=== PATIENT | female | born 1995 | race African-American/Black ===

== ENCOUNTER 2018-03-28 05:13 | Inpatient (IN) | payer MEDICAID, OTHER ==
[2018-03-28 05:51] VITALS: BMI 36.8
[2018-03-28] MEDS: Lactated Ringer's 1,000 ML IV SCH ×2 (06:00→11:27)
[2018-03-28] MEDS ORDERED: CEFAZOLIN/Water 2 GM/20 ML SYRINGE SLOW IVP SCH (06:15)
[2018-03-28] MEDS ORDERED: CEFAZOLIN 2 GM/50 ML-DEXTROSE 2 GM in Premix Bag 1 BAG IVPB SCH (06:15)
[2018-03-28] MEDS ORDERED: Bicitra 30 ML UDCUP PO SCH (06:15)
[2018-03-28] MEDS ORDERED: Acetaminophen 500 MG TAB PO PRN (06:43)
[2018-03-28] MEDS ORDERED: Promethazine HCl 25 MG/ML VIAL IM PRN ×2 (06:43→11:01)
[2018-03-28] MEDS ORDERED: Ondansetron PF 4 MG/2 ML Vial IVP PRN ×2 (06:43→11:01)
[2018-03-28 07:00] LABS: Hemoglobin 10.4 g/dL (12.0-16.0); Mean Corpuscular HGB CONC 32.5 g/dL (32.0-36.0); Mean Corpuscular Hemoglobin 28.1 pg (25.0-35.0); Mean Corpuscular Volume 86.5 fL (78.0-98.0); Mean Platelet Volume 8.1 fL (7.4-10.4); Platelet Count 255 thou/uL (130-400); RBC Distribution Width 13.7 % (11.5-14.5); Red Blood Cell (RBC) Count 3.71 mill/uL (4.00-5.20); White Blood Cell (WBC) Count 9.5 thou/uL (4.8-10.8)
--- NOTE | 2018-03-28 07:13 | PDOC.FPROB ---
FMR OB H&P: HPI - History of Present Illness Chief Complaint: Term IUP, repeat LTCS History of Present Illness: 22 yo @ 39.2 presents for scheduled repeat LTCS. Primary CS 2/2 AOL with intolerance of labor. Pt has h/o pos chlamydia s/p successful rx. Denies LOF, ctxs, vag bleeding. Primary Care Physician: Fernando FMR OB H&P: Current - Care : 2 Para: 1 Gestational age: 39.2 Due date: 04/02/2018 Dating Criteria: 1st tri US Course/Complications: Anemia of Positive chlamydia, successful rx - OB Labs Blood type: A RH: positive Antibody Screen: negative HIV: negative RPR: negative HepBsAg: negative Rubella: immune Quad screen: negative (in 2018) Urine drug screen: not done Gonorrhea: negative Chlamydia: positive (JESSICA negative. Successfully rx.) 1 hour gtt: 109 GBS: negative H&H: 10.4 Platelets: 255 - Anatomy Survey Anatomy survey: Female, no anomalies FMR OB H&P: History - Past Medical History PMH: None - OB History OB History: pLTCS - Surgical History Sx History: LTCS X1 - Social History Social History: Denies alcohol, tobacco, drugs - Family History Family History: Son with sickle cell trait FMR OB H&P: Medications - Current Home Medications: Medication Instructions Recorded Confirmed Type Ferrous Sulfate [Iron] 1 tablet PO DAILY 03/28/18 03/28/18 History Allergies/Adverse Reactions: Allergies Allergy/AdvReac Type Severity Reaction Status Date / Time No Known Allergies Allergy Unverified 03/28/18 05:44 FMR OB H&P: ROS - Review of Systems General: denies: fever/chills, fatigue Eyes: denies: vision changes, double vision, scotomas ENT: denies: nasal congestion Cardiovascular: denies: chest pain Respiratory: denies: shortness of breath Gastrointestinal: denies: abdominal pain, nausea, vomiting, diarrhea, constipation Genitourinary (Female): denies: vaginal pain, vaginal bleeding, contractions, vaginal pressure Musculoskeletal: denies: pain Neurologic: denies: numbness, weakness FMR OB H&P: Vital Signs - Maternal Vital signs: Vital Signs - First Documented Temp Pulse Resp BP 97.5 F L 93 18 112/67 03/28/18 05:45 03/28/18 05:45 03/28/18 05:45 03/28/18 05:45 - Heart Tones Baseline: 120 Variability: moderate Acceleration: present Deceleration: absent Category: category 1 [place] contractions every: None FMR OB H&P: Physical Exam - Physical Exam General: NAD, awake, alert and oriented HEENT: normocephalic and atraumatic, PERRLA, EOMI, conjunctiva clear Neck: trachea midline, no JVD Chest: non-tender to palpation Heart: RRR, normal S1/S2, no murmurs/rubs/gallops, pulses present, no edema General: CTAB, no respiratory distress, good air movement, no rales/rhonchi, no wheezing Abdomen: soft, gravid, non-tender, bowel sound present Musculoskeletal: FROM in all four extremities Neurological: no focal deficit Skin: capillary refill <2 seconds - Pelvic Exam Estimated Weight: 7 lbs FMR OB H&P: Results - Labs Lab results: Laboratory Results - last 24 hr 03/28/18 03/28/18 06:04 06:04 WBC 9.5 RBC 3.71 L Hgb 10.4 L Hct 32.1 L MCV 86.5 MCH 28.1 MCHC 32.5 RDW 13.7 Plt Count 255 MPV 8.1 Blood Type A POSITIVE Antibody Screen NEGATIVE FMR OB H&P: A/P - Problem List (1) Current Visit: Yes Status: Acute (2) Anemia affecting in third trimester Current Visit: Yes Status: Acute Code(s): O99.013 - ANEMIA COMPLICATING , THIRD TRIMESTER (3) History of maternal chlamydia infection, currently Current Visit: Yes Status: Acute Code(s): O09.299 - SUPRVSN OF PREG W POOR REPRODCTV OR OBSTET HISTORY, UNSP TRI; Z86.19 - PERSONAL HISTORY OF OTHER INFECTIOUS AND PARASITIC DISEASES; Z87.59 - PERSONAL HISTORY OF COMP OF PREG, CHLDBRTH AND THE PUERP (4) Family history of sickle cell trait Current Visit: Yes Status: Acute Code(s): Z83.2 - FAMILY HISTORY OF DIS OF THE BLD/BLD-FORM ORG/IMMUN MECHNSM Disposition: stable Discussion: Date/Time: 03/28/18 07 This H&P was discussed with [] and [] who agree with the above documentation and plan. Signature: 1) TIUP: pt elected for rLTCS - preop abx for PPX - IVF - NPO - baby vertex, posterior/fundal placenta 2) h/o chlamydia - successfully treated, repeat test negative 3) anemia of : - hgb: 10.4, platelts 255 - pt typed and screened - monitor for bleeding postoperatively/intraoperatively Dispo: Stable, plan for repat LTCS. Strip reactive/reassuring. Addendum - Attending - Attending Attestation Date/Time: 03/28/18 1038 I personally evaluated the patient and discussed the management with Dr. King I agree with the History, Examination, Assessment and Plan documented above with any addition or exceptions noted below. 22 yo @ 39.2 by 1st trimester US presents for scheduled repeat LTCS Prior x 1 R/B/A of repeat were discussed including but not limited to risk of bleeding, infection, damage to structures surrounding uterus, need for future procedures, need for hysterectomy for life saving purposes. Pt desires RLTCS 1. Inconsistent PNC -Will get SW consult 2. Child with ss trait 3. Anemia -monitor closely and transfuse if indicated 4. Chlamydia -neg jessica Dispo: Anticipate > 2 midnight stay
[2018-03-28 07:26] LABS: HBSAg Index 0.18 S/CO (0-0.99); Hep B Surf Ag Non-Reactive S/CO (NonReactive); Syphilis Antibody Nonreactive (Nonreactive); Syphilis Antibody Index 0.03 S/CO (<1.00 Non-Reactive)
[2018-03-28] MEDS ORDERED: CEFAZOLIN 2 GM/50 ML BAG ONE (07:31)
[2018-03-28] MEDS ORDERED: Morphine PF 1 MG/ML SYR ONE (07:44)
[2018-03-28] MEDS ORDERED: Ondansetron PF 4 MG/2 ML Vial ONE ×2 (07:45→13:55)
[2018-03-28] MEDS ORDERED: ePHEDrine/0.9% NaCl/PF SYRINGE 50 mg/10 ml ONE (07:45)
[2018-03-28] MEDS ORDERED: Oxytocin 10 UNITS/ML VIAL ONE ×4 (07:45→09:24)
[2018-03-28] MEDS ORDERED: PHENYLEPHRINE-NS 100 MCG/ML 10 ML SYRINGE ONE ×2 (07:46→13:55)
[2018-03-28] MEDS ORDERED: Acetaminophen 325 MG TAB PO PRN (08:09)
[2018-03-28] MEDS ORDERED: Bisacodyl 10 MG SUPP PR PRN (08:09)
[2018-03-28] MEDS ORDERED: diphenhydrAMINE 50 MG/ML VIAL ONE (09:44)
[2018-03-28] MEDS ORDERED: Ketorolac Tromethamine 30 MG/ML VIAL ONE (10:53)
[2018-03-28] MEDS: Ferrous Sulfate 325 MG TAB PO SCH (10:57)
[2018-03-28] MEDS: Docusate Calcium (SURFAK) 240 MG CAP PO SCH ×2 (10:57→21:14)
--- NOTE | 2018-03-28 10:58 | OP ---
DATE OF PROCEDURE: 03/28/2018 PROCEDURE NOTE. RESIDENT SURGEON: Dr. Mario King. ASSISTING SURGEON: Dr. Erin Delgado. ATTENDING SURGEON: Dr. Yulisa Ball PROCEDURE PERFORMED: Repeat low-transverse section. PREOPERATIVE DIAGNOSES: 1. Term intrauterine . 2. Previous . 3. Anemia of . 4. Positive chlamydia during with negative test of cure. POSTOPERATIVE DIAGNOSES: 1. Term intrauterine delivered. 2. Repeat low transverse section. 3. Anemia of . 4. History of chlamydia during with negative test of cure. ANESTHESIA: Spinal. INDICATIONS: The patient is a 22-year-old, G2, P1-0-0-1, now P2-0-0-2 female at 39.2 weeks by third trimester ultrasound, who presented for repeat scheduled low-transverse section. PROCEDURE IN DETAIL: After risks, benefits, and alternatives were explained to the patient, she gave informed consent. Preoperative antibiotics included 2 g of Ancef IV. The patient was taken to the operating room. Spinal anesthesia was initiated. She was placed in the supine position with a left tilt, prepped and draped in the usual sterile fashion. A Pfannenstiel incision was made with a scalpel and carried down to the level of fascia, which was sharply nicked. The fascial cut was extended bilaterally with Veliz scissors. The inferior and superior edges of the cut and fascial edges were elevated with Denise clamps and the underlying rectus muscles were sharply and bluntly dissected free. The patient was noted to have a small area of scar tissue at the midline of the fascia, which was successfully dissected free. The recti were divided digitally and retracted manually. The peritoneum was entered bluntly and retracted manually. The bladder blade was placed. Bladder flap was created with Metzenbaum scissors. A low transverse score was made with a scalpel and the uterus was entered in the midline with the scalpel. Clear fluid was seen. The hysterotomy was extended manually. The infant was noted to be vertex and was easily delivered by fundal pressure. Mouth and nares were bulb suctioned. Cord clamped and cut and grossly normal female infant was handed to the waiting nurse. Cord blood was obtained. The placenta was manually extracted, found to be intact with three vessel cord discarded. The uterus was externalized and the endometrium was curetted with a dry lap. The bladder blade was replaced and the uterus was closed with a running locking #1 Monocryl suture. Following this, hemostasis was noted. The abdomen was irrigated with saline and suctioned free of clots. There was one area that was slightly oozy near the area of the hysterotomy, which was cauterized successfully and noted to be hemostatic subsequently. Prior to closing the fascia, the hysterotomy was again noted to be hemostatic. The fascia was closed with a running nonlocking 1 Monocryl suture. Subcutaneous tissue was irrigated and bleeders were cauterized with Bovie cauterization. The skin was approximated with derrick and a pressure dressing was placed. All counts were correct. The patient tolerated the procedure well and was taken to recovery room in stable condition. QUANTITATIVE BLOOD LOSS: 863 mL. COMPLICATIONS: None. SPECIMENS: Cord blood sent to lab for blood type. FINDINGS: Grossly normal female with Apgars of 8 and 9. Born at 0847 hours on 03/28/2016. Grossly normal placenta with three vessel cord discarded. DRAINS: Lopez to gravity draining clear urine. ATTENDING ADDENDUM: I was present for and assisted in the entire uncomplicated repeat low transverse delivery performed by Benjamin King and Sandy. I agree with the documented findings and plan of care. Yulisa Ball DO Job ID: [id number] [facility]
[2018-03-28] MEDS ORDERED: Naloxone HCl 0.4 mg/ml Vial IV PRN (11:01)
[2018-03-28] MEDS ORDERED: diphenhydrAMINE 50 MG/ML VIAL IVP PRN (11:01)
[2018-03-28] MEDS ORDERED: Naloxone HCl 0.4 mg/ml Vial IVP PRN ×2 (11:01)
[2018-03-28] MEDS ORDERED: Eucerin (Mineral Oil/Petrolatum,White) 30 gm Jar TOP PRN (11:01)
[2018-03-28] MEDS ORDERED: HYDROmorphone 2 MG/ML VIAL SLOW IVP PRN (11:01)
[2018-03-28] MEDS ORDERED: Meperidine HCl/PF 25 MG/ML VIAL SLOW IVP PRN (11:01)
[2018-03-28] MEDS ORDERED: Ondansetron HCl/PF 4 MG/2 ML Vial IVP PRN (11:01)
[2018-03-28] MEDS ORDERED: L&D-Morphine 4 MG/ML VIAL SLOW IVP PRN (11:01)
[2018-03-28] MEDS ORDERED: Promethazine HCl 25 MG SUPP PR PRN (11:01)
[2018-03-28] MEDS ORDERED: Communication Order-Pharmacy FS SCH (11:15)
[2018-03-28] MEDS ORDERED: Ketorolac Tromethamine 30 MG/ML VIAL IVP SCH (11:15)
[2018-03-28] MEDS: Ketorolac Tromethamine 30 MG/ML VIAL IVP PRN ×2 (11:25→17:23)
[2018-03-28] MEDS ORDERED: ePHEDrine 50 MG/ML VIAL ONE (13:55)
--- NOTE | 2018-03-28 14:19 | PDOC.PP ---
Post Progress Note Post Day #: 0 Subjective: Patient is resting comfortably in bed. She reports pain is improved of incision , but still present. Also itching has improved. No N/V, BM, flatus. Patient's dressing had to be replaced about 2.5 hrs post-op with pressure dressing due to some bleeding on one of the sides. She does not have any bleeding present at this time. Flatus: no Ambulation: no Vital Signs (12 hours) Temp Pulse Resp BP Pulse Ox 03/28/18 13:20 97.5 F L 95 123/64 95 03/28/18 12:15 97.5 F L 83 20 120/68 99 03/28/18 05:45 97.5 F L 93 18 112/67 Weight Weight 97.522 kg - Physical Examination General: NAD Cardiovascular: no m/r/g, RRR Respiratory: clear to auscultation bilaterally Abdominal: no distention, appropriately TTP Fundus firm & at: umbilicus Skin: CS incision dry & intact (covered with dressing) Neurological: no gross focal deficits Psychiatric: A&Ox3, normal affect Result Diagrams: 03/29/18 06:02 Additional Labs: Post Labs Blood Type A POSITIVE 03/28/18 06:04 Hep Bs Antigen Non-Reactive S/CO (NonReactive) 03/28/18 06:04 (1) Status post Code(s): Z98.891 - HISTORY OF UTERINE SCAR FROM PREVIOUS SURGERY Status: Acute (2) Anemia affecting in third trimester Code(s): O99.013 - ANEMIA COMPLICATING , THIRD TRIMESTER Status: Acute (3) Family history of sickle cell trait Code(s): Z83.2 - FAMILY HISTORY OF DIS OF THE BLD/BLD-FORM ORG/IMMUN MECHNSM Status: Acute - Assessment/Plan #post op scheduled G2 now P2 -4 hours post-op -stomach only tender at incision site, fundus tender to -continue with current management -continue to monitor incision site bleeding which is stable right now -consider wound vac if persistently bleeding -H/H in AM Addendum - Attending - Attending Attestation Date/Time: 03/28/18 9982 I personally evaluated the patient and discussed the management with Dr. Charles I agree with the History, Examination, Assessment and Plan documented above with any addition or exceptions noted below. 22 yo female s/p RLTCS on 03/28/18 at 0847 HD#1 POD# 0 Patient doing well. Pain controlled. Tolerating liquids. Lochia approprate. Bandage with some bleeding. Removed. No concerns for bleeding or dehiscence. VS reviewed. Agree with PE. Fundus firm at umbilicus. Appropriately tender. 1. s/p RLTCS: Continue routine pp care. Maintain pressure bandage. Monitor H&H. Strict I/Os. Q 2 to 4 hour VS. Encourage breast feeding. 2. GBS negative 3. Hx of CT infection this : JESSICA negative. Monitor. 4. Family hx of sickle cell trait in son 5. Anemia of : Monitor postop H&H. Asymptomatic at present. Start iron supplement. 6. Incomplete PNC 7. Contraception: Unsure Continue routine pp care. Monitor throughout the night. An
[2018-03-28] MEDS ORDERED: Ibuprofen 800 MG TAB PO PRN (20:50)
[2018-03-29] MEDS: Acetaminophen/Codeine 30-300mg Tablet PO PRN ×3 (05:35→23:50)
[2018-03-29 06:20] LABS: Hemoglobin 9.3 g/dL (12.0-16.0); Mean Corpuscular HGB CONC 32.9 g/dL (32.0-36.0); Mean Corpuscular Volume 88.3 fL (78.0-98.0); Mean Platelet Volume 7.7 fL (7.4-10.4); Platelet Count 218 thou/uL (130-400); RBC Distribution Width 13.7 % (11.5-14.5); Red Blood Cell (RBC) Count 3.21 mill/uL (4.00-5.20); White Blood Cell (WBC) Count 11.6 thou/uL (4.8-10.8)
[2018-03-29] MEDS: Ferrous Sulfate 325 MG TAB PO SCH ×3 (06:22→21:46)
[2018-03-29] MEDS: Acetaminophen 500 MG TAB PO SCH ×3 (06:22→17:47)
[2018-03-29] MEDS: Ibuprofen 800 MG TAB PO SCH ×3 (06:23→21:46)
[2018-03-29] MEDS: Docusate Calcium (SURFAK) 240 MG CAP PO SCH ×2 (08:33→21:46)
[2018-03-29] MEDS ORDERED: Adacel (T-DAP) 0.5 ML SYRINGE IM ONE (09:00)
--- NOTE | 2018-03-29 09:47 | PDOC.PP ---
Post Progress Note Post Day #: 1 Subjective: 22 yo -->1999 s/p rLTCS w/o complication. Pt reports she is doing well and has only mild pain at the incision site. Othrewise no complaints. Per nurse , incision has not been bleeding and incision site is CDI. PO intake tolerated: yes Flatus: yes Ambulation: yes Vital Signs (12 hours) Temp Pulse Resp BP Pulse Ox 03/29/18 08:00 98.0 F 77 20 104/55 L 100 03/29/18 06:00 18 03/29/18 05:15 97.7 F 87 20 111/59 L 03/29/18 02:00 16 03/29/18 00:00 98.2 F 96 18 117/61 03/28/18 22:00 18 Weight Weight 97.522 kg - Physical Examination General: NAD Cardiovascular: no m/r/g, RRR Respiratory: clear to auscultation bilaterally, non-labored breathing Abdominal: + bowel sounds, no distention, appropriately TTP Skin: CS incision dry & intact, no rash Neurological: no gross focal deficits Psychiatric: normal affect Result Diagrams: 03/29/18 06:02 Additional Labs: Post Labs Blood Type A POSITIVE 03/28/18 06:04 Hep Bs Antigen Non-Reactive S/CO (NonReactive) 03/28/18 06:04 (1) Status: Resolved (2) Anemia affecting in third trimester Code(s): O99.013 - ANEMIA COMPLICATING , THIRD TRIMESTER Status: Acute (3) History of maternal chlamydia infection, currently Code(s): O09.299 - SUPRVSN OF PREG W POOR REPRODCTV OR OBSTET HISTORY, UNSP TRI ; Z86.19 - PERSONAL HISTORY OF OTHER INFECTIOUS AND PARASITIC DISEASES; Z87.59 - PERSONAL HISTORY OF COMP OF PREG, CHLDBRTH AND THE PUERP Status: Acute (4) Family history of sickle cell trait Code(s): Z83.2 - FAMILY HISTORY OF DIS OF THE BLD/BLD-FORM ORG/IMMUN MECHNSM Status: Acute (5) Status post Code(s): Z98.891 - HISTORY OF UTERINE SCAR FROM PREVIOUS SURGERY Status: Acute - Assessment/Plan 1) s/p rLTCS - h/h this am 9.3 - VSS and asymptomatic - cont Fe and stool softener in addition to PNV - otherwise doing well and pain well controlled - likely dc to home tomorrow 2) anemia of - QBL 836 and minimal blood loss post op - h/h appropriate and stable - cont to monitor for s/s of bleeding - cont Fe and PNV 3) h/o chlamydia s/p rx and neg JESSICA Dispo: stable, plan for DC to home tomorrow Addendum - Attending - Attending Attestation Date/Time: 03/29/18 0222 I personally evaluated the patient and discussed the management with Dr. King I agree with the History, Examination, Assessment and Plan documented above with any addition or exceptions noted below. 22 yo female s/p RLTCS on 03/28/18 at 0847 HD#2 POD# 1 Doing well. No complications. Lochia mild. Pain controlled. Voiding and ambulating well. +flatus. Incision healing well. VS reviewed. Agree with PE. Fundus firm below umbilicus. Nontender. Noble in place. No drainage, nontender, no erythema. 1. s/p RLTCS: Continue routine pp care. Encourage . Remove derrick POD#5. 2. GBS negative 3. Hx of CT infection this : JESSICA negative. Monitor. 4. Family hx of sickle cell trait in son: Patient screening negative. 5. Anemia of now with acute blood loss anemia: Continue iron. 6. Incomplete PNC 7. Contraception: Unsure Continue routine pp care. Monitor throughout the night. Possible dc to home tomorrow. An
[2018-03-30] MEDS: Acetaminophen 500 MG TAB PO SCH ×2 (01:33→05:51)
[2018-03-30] MEDS: Ibuprofen 800 MG TAB PO SCH (05:43)
[2018-03-30 08:19] VITALS: BP 119/63; TEMP 98.3
[2018-03-30] MEDS: Ferrous Sulfate 325 MG TAB PO SCH ×2 (08:38→09:14)
--- NOTE | 2018-03-30 08:45 | PDOC.PP ---
Post Progress Note Post Day #: 2 Subjective: 22 delivered @ 39.2 by rLTCS. Doing well no complaints. Denies CP, SOB , NVDC. No BM yet, tolerating po and ambulating well. Some incisional pain. PO intake tolerated: yes Flatus: yes Ambulation: yes Vital Signs (12 hours) Temp Pulse Resp BP Pulse Ox 03/30/18 08:18 98.3 F 86 20 119/63 99 03/30/18 04:21 97.9 F 102 H 18 120/66 03/29/18 23:50 98.1 F 104 H 18 132/70 Weight Weight 97.522 kg - Physical Examination General: NAD Cardiovascular: no m/r/g, RRR Respiratory: clear to auscultation bilaterally, non-labored breathing Abdominal: + bowel sounds, no distention, appropriately TTP Extremities: negative homans (B) Skin: CS incision dry & intact Neurological: no gross focal deficits Psychiatric: normal affect Result Diagrams: 03/29/18 06:02 Additional Labs: Post Labs Blood Type A POSITIVE 03/28/18 06:04 Hep Bs Antigen Non-Reactive S/CO (NonReactive) 03/28/18 06:04 (1) Status: Resolved (2) Anemia affecting in third trimester Code(s): O99.013 - ANEMIA COMPLICATING , THIRD TRIMESTER Status: Acute (3) History of maternal chlamydia infection, currently Code(s): O09.299 - SUPRVSN OF PREG W POOR REPRODCTV OR OBSTET HISTORY, UNSP TRI ; Z86.19 - PERSONAL HISTORY OF OTHER INFECTIOUS AND PARASITIC DISEASES; Z87.59 - PERSONAL HISTORY OF COMP OF PREG, CHLDBRTH AND THE PUERP Status: Acute (4) Family history of sickle cell trait Code(s): Z83.2 - FAMILY HISTORY OF DIS OF THE BLD/BLD-FORM ORG/IMMUN MECHNSM Status: Acute (5) Status post Code(s): Z98.891 - HISTORY OF UTERINE SCAR FROM PREVIOUS SURGERY Status: Acute - Assessment/Plan 1) s/p rLTCS - plan for discharge to home today and f/u at [facility] in 2 days for staple removal - DC with ibuprofen, PNV, Fe and bowel regimen 2) Anemia of - Fe cont - f/u PNC in 2 days for staple removal - no s/s of continued bleeding Addendum - Attending - Attending Attestation Date/Time: 03/30/18 1307 I personally evaluated the patient and discussed the management with Dr. King I agree with the History, Examination, Assessment and Plan documented above with any addition or exceptions noted below. 22 yo female s/p RLTCS on 03/28/18 at 0847 HD#3 POD# 2 Doing well. No complications. Lochia adequate and minimal. Pain controlled. Voiding and ambulating well. +flatus. Incision healing well. VS reviewed. Agree with PE. Fundus firm below umbilicus. Nontender. [place] in place. No drainage, nontender, no erythema. 1. s/p RLTCS: Meeting milestones. Remove derrick POD#5. 2. GBS negative 3. Hx of CT infection this : JESSICA negative. Monitor. 4. Family hx of sickle cell trait in son: Patient screening negative. screen negative. 5. Anemia of now with acute blood loss anemia: Continue iron. 6. Incomplete PNC 7. Contraception: Unsure Ok to d/c to home. Follow up with PCP for staple removal in 3 days. An
[2018-03-30] MEDS: Docusate Calcium (SURFAK) 240 MG CAP PO SCH (08:50)
[2018-03-30] MEDS: Acetaminophen/Codeine 30-300mg Tablet PO PRN (11:51)
== END 2018-03-30 12:10 | disposition home or self-care (01) | DRG 788 ==
LOC: L&D 05:13 → 3SW 12:28
PROVIDERS: ADMIT Family Medicine; ATTEND Family Medicine
PROC: 10D00Z1 Extraction of Products of Conception, Low, Open Approach (ICD-10-PCS; principal; 2018-03-28)
DX: O34.211 Maternal care for low transverse scar from previous cesarean delivery (principal); Z3A.39 39 weeks gestation of pregnancy; Z37.0 Single live birth; O99.02 Anemia complicating childbirth; D64.9 Anemia, unspecified; Z83.2 Family history of diseases of the blood and blood-forming organs and certain disorders involving the immune mechanism; Z86.19 Personal history of other infectious and parasitic diseases
CPT/HCPCS: 36415; 51702; 85027; 86780; 86850; 86900; 86901; 87340; J1200; J1885; J2274; J2405; J2590

== ENCOUNTER 2020-09-23 20:49 | Emergency (ER) | payer OTHER ==
[2020-09-24 12:50] LABS: SARS-CoV-2 PCR by NAA Not Detected (NotDetected)
== END 2020-09-23 21:24 | disposition home or self-care (01) ==
LOC: ERS 20:49
DX: R05 Cough (principal); Z20.822 Contact with and (suspected) exposure to COVID-19
CPT/HCPCS: 99283; U0003; U0005

== ENCOUNTER 2021-06-20 16:28 | Emergency (ER) | payer OTHER, SELFPAY ==
[2021-06-20 17:57] LABS: #Basophils 0.1 thou/uL (0.0-0.2); #Eosinphils 0.2 thou/uL (0.0-0.7); #Lymphocytes 3.4 thou/uL (1.20-3.40); #Monocytes 0.7 thou/uL (0.11-0.59); #Neutrophils 10.2 thou/uL (1.40-6.50); %Basophils 0.4 % (0.0-1.0); %Eosinophils 1.1 % (0.0-10.0); %Lymphocytes 23.3 % (21.0-51.0); %Monocytes 4.7 % (0.0-10.0); %Neutrophils 70.5 % (42.0-75.0); Hemoglobin 12.1 g/dL (12.0-16.0); Mean Corpuscular HGB CONC 31.7 g/dL (32.0-36.0); Mean Corpuscular Hemoglobin 26.8 pg (27.0-31.0); Mean Corpuscular Volume 84.5 fL (78.0-98.0); Mean Platelet Volume 6.8 fL (7.4-10.4); Platelet Count 459 thou/uL (130-400); RBC Distribution Width 16.2 % (11.5-14.5); Red Blood Cell (RBC) Count 4.53 mill/uL (4.20-5.40); White Blood Cell (WBC) Count 14.4 thou/uL (4.8-10.8)
[2021-06-20] MEDS ORDERED: Acetaminophen 500 MG TAB ONE (20:37)
== END 2021-06-20 20:40 | disposition home or self-care (01) ==
LOC: ERS 16:28
DX: O20.0 Threatened abortion (principal); Z3A.01 Less than 8 weeks gestation of pregnancy
CPT/HCPCS: 36415; 76856; 84702; 85025; 86900; 86901

== ENCOUNTER 2021-08-01 18:47 | Emergency (ER) | payer OTHER ==
[2021-08-01 19:14] LABS: Bilirubin Negative (Negative); Blood, Urine Negative (Negative); Clarity Clear (Clear); Glucose, Urine (Dipstick) Normal (Negative); Ketone, Urine Trace mg/dL (Negative); Leukocyte Negative Leu/uL (Negative); Nitrite Negative (Negative); Protein, Urine (Dipstick) 20 mg/dL (Neg-Trace); Specific Gravity, Urine 1.042 (1.002-1.036); pH, Urine 5.5 (5.0-9.0)
[2021-08-01 19:16] LABS: Pregnancy Test - Urine (BHCG) Negative (Negative); Pregu Control Background? CLEAR/WHITE (CLR/WHITE); Pregu Control Bar Appear? YES (CONTROL BAR); Specific Gravity 1.042 (1.002-1.036)
[2021-08-01] MEDS ORDERED: Azithromycin 250 MG TAB ONE (19:18)
[2021-08-01] MEDS ORDERED: Lidocaine 1% PF 5 ML VIAL ONE (19:18)
[2021-08-01] MEDS ORDERED: cefTRIAXone\\ROCEPHIN 500 MG VIAL ONE (19:18)
[2021-08-02 14:02] LABS: Chlam.trachomatis by PCR,Urine Not Detected (NotDetected)
== END 2021-08-01 19:41 | disposition home or self-care (01) ==
LOC: ERS 18:47
DX: N89.8 Other specified noninflammatory disorders of vagina (principal)
CPT/HCPCS: 81003; 81025; 87491; 87591; 96372; 99283; J0696

== ENCOUNTER 2021-10-30 07:16 | Emergency (ER) | payer OTHER ==
[2021-10-30 07:57] LABS: #Basophils 0.1 thou/uL (0.0-0.2); #Eosinphils 0.2 thou/uL (0.0-0.7); #Lymphocytes 3.2 thou/uL (1.20-3.40); #Monocytes 0.6 thou/uL (0.11-0.59); #Neutrophils 8.9 thou/uL (1.40-6.50); %Basophils 0.5 % (0.0-1.0); %Eosinophils 1.8 % (0.0-10.0); %Lymphocytes 24.6 % (21.0-51.0); %Monocytes 4.6 % (0.0-10.0); %Neutrophils 68.5 % (42.0-75.0); Hemoglobin 9.8 g/dL (12.0-16.0); Mean Corpuscular Hemoglobin 27.8 pg (27.0-31.0); Mean Corpuscular Volume 87.1 fL (78.0-98.0); Mean Platelet Volume 7.2 fL (7.4-10.4); Platelet Count 349 thou/uL (130-400); RBC Distribution Width 13.9 % (11.5-14.5); Red Blood Cell (RBC) Count 3.53 mill/uL (4.20-5.40)
[2021-10-30 07:59] LABS: Bilirubin Negative (Negative); Blood, Urine 3+ (Negative); Clarity Turbid (Clear); Glucose, Urine (Dipstick) Normal (Negative); Ketone, Urine Negative (Negative); Leukocyte 75 Leu/uL (Negative); Nitrite Negative (Negative); Protein, Urine (Dipstick) 20 mg/dL (Neg-Trace); RBC/HPF Greater than 50 HPF (0-3); Specific Gravity, Urine 1.029 (1.002-1.036); Urobilinogen Normal mg/dL (Less than 2); pH, Urine 5.5 (5.0-9.0)
[2021-10-30 08:01] LABS: Pregnancy Test - Urine (BHCG) POSITIVE (Negative); Pregu Control Background? CLEAR/WHITE (CLR/WHITE); Pregu Control Bar Appear? YES (CONTROL BAR); Specific Gravity 1.029 (1.002-1.036)
[2021-10-30 08:08] LABS: Bacteria/HPF Rare-Few HPF (None Seen)
[2021-10-30 08:21] LABS: ALT (SGPT) 13 U/L (8-55); AST (SGOT) 13 U/L (5-34); Albumin 3.5 g/dL (3.5-5.0); Alkaline Phosphatase 40 U/L (40-110); Anion Gap 14 mmol/L (10-20); BUN (Urea Nitrogen) 9 mg/dL (7.0-18.7); Bilirubin, Total 0.2 mg/dL (0.2-1.2); Calc. Creatinine Clearance 0 mL/min (70-130); Calcium 9.4 mg/dL (7.8-10.44); Carbon Dioxide 21 mmol/L (22-29); Chloride 107 mmol/L (98-107); Estimated GFR 114; Globulin 3.6 g/dL (2.4-3.5); Glucose 102 mg/dL (70-105); Lipase 69 U/L (8-78); Potassium 3.6 mmol/L (3.5-5.1); Protein, Total 7.1 g/dL (6.0-8.3); Sodium 138 mmol/L (136-145)
== END 2021-10-30 10:53 | disposition home or self-care (01) ==
LOC: ERS 07:16
DX: O20.0 Threatened abortion (principal)
CPT/HCPCS: 36415; 76856; 80053; 81003; 81015; 81025; 83690; 84702; 85025; 86900; 86901; 87086; 93976

== ENCOUNTER 2021-10-30 13:57 | Emergency (ER) | payer OTHER ==
[2021-10-30] MEDS ORDERED: HYDROcodone/Acetaminophen 5/325 mg Tablet ONE (14:43)
[2021-10-30 15:11] LABS: #Eosinphils 0.2 thou/uL (0.0-0.7); #Lymphocytes 3.1 thou/uL (1.20-3.40); #Monocytes 0.8 thou/uL (0.11-0.59); #Neutrophils 11.9 thou/uL (1.40-6.50); %Basophils 0.2 % (0.0-1.0); %Eosinophils 1.5 % (0.0-10.0); %Lymphocytes 19.4 % (21.0-51.0); %Monocytes 4.7 % (0.0-10.0); %Neutrophils 74.3 % (42.0-75.0); Hemoglobin 8.5 g/dL (12.0-16.0); Mean Corpuscular HGB CONC 32.9 g/dL (32.0-36.0); Mean Corpuscular Hemoglobin 28.5 pg (27.0-31.0); Mean Corpuscular Volume 86.6 fL (78.0-98.0); Mean Platelet Volume 7.2 fL (7.4-10.4); Platelet Count 337 thou/uL (130-400); RBC Distribution Width 13.9 % (11.5-14.5); Red Blood Cell (RBC) Count 2.99 mill/uL (4.20-5.40)
[2021-10-30] MEDS ORDERED: Ondansetron PF 4 MG/2 ML Vial ONE (15:44)
[2021-10-30] MEDS ORDERED: Morphine 4 MG/ML VIAL ONE (15:44)
[2021-10-30] MEDS ORDERED: Misoprostol 200 MCG TAB VAG SCH (16:00)
== END 2021-10-30 17:04 | disposition short-term general hospital (02) ==
LOC: ERS 13:57
DX: O03.9 Complete or unspecified spontaneous abortion without complication (principal)
CPT/HCPCS: 36415; 76856; 80053; 81003; 81015; 81025; 83690; 84702; 85025; 86850; 86900; 86901; 87086; 93976; 96374; 96375; J2270; J2405

== ENCOUNTER 2021-12-10 08:30 | Emergency (ER) | payer OTHER ==
[2021-12-10] MEDS ORDERED: cefTRIAXone\\ROCEPHIN 500 MG VIAL ONE (09:41)
[2021-12-10] MEDS ORDERED: Lidocaine 1% PF 5 ML VIAL ONE (09:41)
[2021-12-10 20:54] LABS: Chlamydia by PCR Not Detected (NotDetected); GC by PCR Not Detected (NotDetected)
== END 2021-12-10 10:02 | disposition home or self-care (01) ==
LOC: ERS 08:30
DX: N72 Inflammatory disease of cervix uteri (principal)
CPT/HCPCS: 87480; 87491; 87510; 87591; 87660; 96372; 99283; J0696

== ENCOUNTER 2022-11-03 04:49 | Emergency (ER) | payer OTHER ==
[2022-11-03 12:21] LABS: Chlamydia by PCR, Vaginal Swab Not Detected (NotDetected); GC by PCR, Vaginal Swab Not Detected (NotDetected)
== END 2022-11-03 05:56 | disposition home or self-care (01) ==
LOC: ERS 04:49
DX: N76.0 Acute vaginitis (principal)
CPT/HCPCS: 87480; 87491; 87510; 87591; 87660; 99283

== ENCOUNTER 2023-01-07 08:33 | Emergency (ER) | payer OTHER ==
[2023-01-07 09:42] LABS: Bilirubin Negative (Negative); Blood, Urine Negative (Negative); Clarity Clear (Clear); Glucose, Urine (Dipstick) Normal (Negative); Ketone, Urine Negative (Negative); Leukocyte 500 Leu/uL (Negative); Nitrite Negative (Negative); Protein, Urine (Dipstick) Negative (Neg-Trace); Specific Gravity, Urine 1.021 (1.002-1.036); Urobilinogen Normal mg/dL (Less than 2)
[2023-01-07 09:44] LABS: Pregnancy Test - Urine (BHCG) Negative (Negative); Pregu Control Background? CLEAR/WHITE (CLR/WHITE); Pregu Control Bar Appear? YES (CONTROL BAR); Specific Gravity 1.021 (1.002-1.036)
[2023-01-07 09:51] LABS: Bacteria/HPF 3+ HPF (None Seen); CAUTI Indications for Culture Pelvic or flank pain; RBC/HPF 0-3 HPF (0-3)
[2023-01-07 09:53] LABS: Urine Culture Reflex No No
[2023-01-07 14:30] LABS: Chlam.trachomatis by PCR,Urine Not Detected (NotDetected); GC N.gonorrhoeae PCR,UrineVOID Not Detected (NotDetected)
[2023-01-08 11:33] LABS: Chlamydia by PCR, Vaginal Swab *Indeterminate (NotDetected); GC by PCR, Vaginal Swab *Indeterminate (NotDetected)
== END 2023-01-07 11:45 | disposition home or self-care (01) ==
LOC: ERS 08:33
DX: N76.0 Acute vaginitis (principal); A59.9 Trichomoniasis, unspecified; F17.290 Nicotine dependence, other tobacco product, uncomplicated
CPT/HCPCS: 81001; 81025; 87086; 87480; 87491; 87510; 87591; 87660; 99284

== ENCOUNTER 2023-07-31 19:46 | Emergency (ER) | payer SELFPAY ==
[2023-07-31 21:08] LABS: Bacteria/HPF None Seen HPF (None Seen); Bilirubin Negative (Negative); Blood, Urine Negative (Negative); CAUTI Indications for Culture Pelvic or flank pain; Clarity Clear (Clear); Glucose, Urine (Dipstick) Normal (Negative); Ketone, Urine Negative (Negative); Leukocyte Negative Leu/uL (Negative); Nitrite Negative (Negative); Protein, Urine (Dipstick) Negative (Neg-Trace); RBC/HPF 0-3 HPF (0-3); Specific Gravity, Urine 1.031 (1.002-1.036); Squamous Epithelial 0-3 HPF (0-3); WBC/HPF 0-3 HPF (0-3); pH, Urine 6.5 (5.0-9.0)
[2023-07-31 21:13] LABS: Pregnancy Test - Urine (BHCG) Negative (Negative); Pregu Control Background? CLEAR/WHITE (CLR/WHITE); Pregu Control Bar Appear? YES (CONTROL BAR); Specific Gravity 1.031 (1.002-1.036)
[2023-07-31 21:14] LABS: Urine Culture Reflex No No
[2023-07-31] MEDS ORDERED: Azithromycin 250 MG TAB ONE (22:58)
[2023-07-31] MEDS ORDERED: Lidocaine 1% MPF 2 ML VIAL ONE (22:58)
[2023-07-31] MEDS ORDERED: cefTRIAXone (ROCEPHIN) 500 MG VIAL ONE (22:59)
[2023-08-01 03:37] LABS: Chlamydia by PCR, Vaginal Swab Not Detected (NotDetected); GC by PCR, Vaginal Swab Not Detected (NotDetected)
== END 2023-07-31 23:11 | disposition home or self-care (01) ==
LOC: ERS 19:46
DX: N76.0 Acute vaginitis (principal); Z87.891 Personal history of nicotine dependence
CPT/HCPCS: 81001; 81025; 87480; 87491; 87510; 87591; 87660; 96372; 99283; J0696